=== PATIENT | female | born 1985 | race Caucasian/White ===

== ENCOUNTER 2021-01-27 17:54 | Emergency (ER) | payer OTHER, MEDICAID ==
[2021-01-27] MEDS ORDERED: Bacitracin Oint 1 GM U/D Packet TOP ONE (18:36)
--- NOTE | 2021-01-27 18:41 | EDM.PDOC ---
ED HPI GENERAL MEDICAL PROBLEM - General Chief Complaint: Laceration Stated Complaint: RT HAND POINTER FINGER LACERATION Time Seen by Provider: 01/27/21 18:30 Source of Information: Reports: Patient History Limitations: Reports: No Limitations - History of Present Illness INITIAL COMMENTS - FREE TEXT/NARRATIVE: 35 yo female from [facility] presents after cutting off the extreme tip of her R index finger. Bleeding was initially brisk, but now controlled. She is UTD on her tetanus. 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 (see below) (none) - Related Data Allergies Allergy/AdvReac Type Severity Reaction Status Date / Time hydromorphone [From Dilaudid] Allergy Hyperactivi Verified 01/27/21 18:23 ty Home Meds: Home Meds Escitalopram Oxalate 20 mg PO DAILY 01/27/21 [History] hydrOXYzine HCL [Hydroxyzine HCl] 25 mg PO DAILY 01/27/21 [History] Past Medical History [employer] History: Reports: Psychiatric History: Reports: Anxiety - Past Surgical History GI Surgical History: Reports: Appendectomy Female Surgical History: Reports: Hysterectomy Social & Family History - Tobacco Use Tobacco Use Status *Q: Never Tobacco User ED ROS GENERAL - Review of Systems Review Of Systems: See Below Constitutional: Reports: No Symptoms Skin: Reports: Wound (small avulsion tip of R index finger) Neurological: Reports: No Symptoms ED EXAM, SKIN/RASH Exam: See Below Exam Limited By: No Limitations General Appearance: Alert, WD/WN, No Apparent Distress Extremities: No Pedal Edema, Other (wound tip of R index finger). No: Normal Inspection, Pedal Edema, Increased Warmth, Redness Neurological: Alert, Oriented, CN II-XII Intact, Normal Cognition, No Motor/Sensory Deficits Psychiatric: Normal Affect, Normal Mood Skin: Warm, Dry, Normal Color, No Rash, Wound/Incision (avulsion of extreme tip of R index, bleeding controlled. ). No: Intact Location, Skin: Upper Extremity, Right Associated features: Tenderness. No: Warmth, Lymphangitis Course - Vital Signs Text/Narrative:: Wound cleaned and dressed by RN Last Recorded V/S: Last Vital Signs Temp 36.6 C 01/27/21 18:22 Pulse 79 01/27/21 18:22 Resp 16 01/27/21 18:22 BP 114/80 01/27/21 18:22 Pulse Ox 94 L 01/27/21 18:22 - Orders/Labs/Meds Orders: Active Orders 24 hr Category Date Time Status Bacitracin [Bacitracin Oint 1 GM] Med 01/27/21 18:36 Once 1 dose TOP ONETIME ONE Departure - Departure Time of Disposition: 18:45 Disposition: Home, Self-Care 01 Condition: Good Clinical Impression: Avulsion, finger tip Qualifiers: Encounter type: initial encounter Qualified Code(s): S61.209A - Unspecified open wound of unspecified finger without damage to nail, initial encounter - Discharge Information *PRESCRIPTION DRUG MONITORING PROGRAM REVIEWED*: Not Applicable *COPY OF PRESCRIPTION DRUG MONITORING REPORT IN PATIENT [place]: Not Applicable Referrals: PCP,None [Primary Care Provider] - Additional Instructions: Clean wound twice a day with soap and water. Dry. Apply antibiotic ointment and a new dressing. Acetaminophen as needed for pain relief. Recheck for signs of infection. Sepsis Event Note (ED) - Evaluation Sepsis Screening Result: No Definite Risk - Focused Exam Vital Signs: Vital Signs Temp Pulse Resp BP Pulse Ox 01/27/21 18:22 36.6 C 79 16 114/80 94 L 01/27/21 18:09 36.6 C 79 16 114/80 94 L - My Orders Last 24 Hours: My Active Orders 01/27/21 18:36 Bacitracin [Bacitracin Oint 1 GM] 1 dose TOP ONETIME ONE - Assessment/Plan Last 24 Hours: My Active Orders 01/27/21 18:36 Bacitracin [Bacitracin Oint 1 GM] 1 dose TOP ONETIME ONE
== END 2021-01-27 19:03 | disposition home or self-care (01) ==
LOC: JP.ED 17:54
DX: S61.200A Unspecified open wound of right index finger without damage to nail, initial encounter (principal); Z88.5 Allergy status to narcotic agent; W26.8XXA Contact with other sharp object(s), not elsewhere classified, initial encounter
CPT/HCPCS: 99282